=== PATIENT | female | born 1990 | race Caucasian/White ===

== ENCOUNTER 2017-08-28 19:28 | Emergency (ER) | payer OTHER ==
--- NOTE | 2017-08-28 19:56 | ER Document Report ---
ED Medical Screen (RME) - General Chief Complaint: Chest Pain Stated Complaint: CHEST PAIN,DIFFICULTY BREATHING Time Seen by Provider: 08/28/17 19:50 Notes: Patient presents with a sudden onset of substernal sharp chest pain and shortness of breath. No cough or congestion. No previous history of DVT or PE. She does have a history of PSVT. However she states this feels different. She states she quit smoking 1 week ago. No history of hormone usage. No recent long plane rides or car trips. No recent surgeries. TRAVEL OUTSIDE OF THE [place] IN LAST 30 DAYS: No - Related Data Allergies/Adverse Reactions: Adhesive Bandage * [Adhesive Bandage] Allergy (Severe, Verified 06/29/15 11:27) Skin blisters, cracks, bleeds Soaps Allergy (Severe, Uncoded 06/29/15 11:27) Skin blisters, cracks, bleeds Past Medical History - Social History Chew tobacco use (# tins/day): No Frequency of alcohol use: None Drug Abuse: None - Past Medical History Cardiac Medical History: Denies: Hx Coronary Artery Disease, Hx Heart Attack, Hx Hypertension Pulmonary Medical History: Reports: Hx Pneumonia - As a child Denies: Hx Asthma, Hx Bronchitis, Hx COPD Neurological Medical History: Reports: Hx Migraine. Denies: Hx Cerebrovascular Accident, Hx Seizures Renal/ Medical History: Denies: Hx Peritoneal Dialysis Musculoskeltal Medical History: Denies Hx Arthritis, Reports Hx Musculoskeletal Trauma - ankles and wrist and right elbow Skin Medical History: Reports Hx Eczema Psychiatric Medical History: Reports: Hx Anxiety, Hx Bipolar Disorder Past Surgical History: Reports: Hx Adenoidectomy, Hx Tonsillectomy - and addenoids - Immunizations Immunizations up to date: Yes Hx Diphtheria, Pertussis, Tetanus Vaccination: Yes
[2017-08-28 20:40] LABS: ABSOLUTE BASOPHILS # (AUTO) 0.1 10^3/uL (0.0-0.2); ABSOLUTE EOSINOPHILS # (AUTO) 0.4 10^3/uL (0.0-0.6); ABSOLUTE LYMPHOCYTES (AUTO) 3.1 10^3/uL (0.5-4.7); ABSOLUTE MONOCYTES (AUTO) 0.4 10^3/uL (0.1-1.4); ABSOLUTE NEUT (AUTO) 6.2 10^3/uL (1.7-8.2); BASOPHILS % (AUTO) 0.6 % (0-2); HEMATOCRIT 41.6 % (36.0-47.0); HEMOGLOBIN 14.1 g/dL (12.0-15.5); HGB HCT DIFFERENCE 0.7; LYMPHOCYTES % (AUTO) 30.4 % (13-45); MEAN CORPUSCULAR HEMOGLOBIN 31.3 pg (27.0-33.4); MEAN CORPUSCULAR VOLUME 92 fl (80-97); MONOCYTES % (AUTO) 3.8 % (3-13); RED BLOOD COUNT 4.52 10^6/uL (3.72-5.28); RED CELL DISTRIBUTION WIDTH 12.8 % (11.5-14.0); SEGMENTED NEUTROPHILS % (AUTO) 61.2 % (42-78); WHITE BLOOD COUNT 10.1 10^3/uL (4.0-10.5)
--- NOTE | 2017-08-28 20:47 | RADIOLOGY REPORT (SQ) ---
EXAM DESCRIPTION: CHEST PA/LAT COMPLETED DATE/TIME: 08/28/2017 8:32 pm REASON FOR STUDY: cp COMPARISON: None. EXAM PARAMETERS: NUMBER OF VIEWS: two views TECHNIQUE: Digital Frontal and Lateral radiographic views of the chest acquired. RADIATION DOSE: NA LIMITATIONS: none FINDINGS: LUNGS AND PLEURA: No opacities, masses or pneumothorax. No pleural effusion. MEDIASTINUM AND HILAR STRUCTURES: No masses or contour abnormalities. HEART AND VASCULAR STRUCTURES: Heart normal size. No evidence for failure. BONES: No acute findings. HARDWARE: None in the chest. OTHER: No other significant finding. IMPRESSION: NO SIGNIFICANT RADIOGRAPHIC FINDING IN THE CHEST. TECHNICAL DOCUMENTATION: JOB ID: [id number] [employer]- All Rights Reserved
[2017-08-28 21:00] LABS: ALANINE AMINOTRANSFERASE 36 U/L (9-52); ALBUMIN 4.6 g/dL (3.5-5.0); ALKALINE PHOSPHATASE 80 U/L (38-126); ANION GAP 12 (5-19); ASPARTATE AMINO TRANSFERASE 31 U/L (14-36); BILIRUBIN,DIRECT 0.3 mg/dL (0.0-0.4); BILIRUBIN,TOTAL 0.4 mg/dL (0.2-1.3); BLOOD UREA NITROGEN 13 mg/dL (7-20); CALCIUM 9.6 mg/dL (8.4-10.2); CARBON DIOXIDE 28 mmol/L (22-30); CHLORIDE 104 mmol/L (98-107); CREATININE RESULT 0.72 mg/dL (0.52-1.25); GLUCOSE 79 mg/dL (75-110); POTASSIUM 4.1 mmol/L (3.6-5.0); SODIUM 143.5 mmol/L (137-145); TOTAL PROTEIN 6.6 g/dL (6.3-8.2)
[2017-08-28] MEDS ORDERED: LORAZEPAM 1 MG TABLET PO ONE (21:14)
[2017-08-28] MEDS ORDERED: IBUPROFEN 600 MG TABLET PO ONE (21:16)
[2017-08-28 21:17] VITALS: BP 129/83
[2017-08-28 21:29] LABS: APPEARANCE,URINE SLIGHTLY-CLOUDY; BILIRUBIN,URINE NEGATIVE (NEGATIVE); GLUCOSE, URINE NEGATIVE (NEGATIVE); KETONES,URINE NEGATIVE (NEGATIVE); LEUKOCYTE ESTERASE,URINE NEGATIVE (NEGATIVE); NITRITE,URINE NEGATIVE (NEGATIVE); PROTEIN,URINE 30 mg/dL (NEGATIVE); URINE SPECIFIC GRAVITY 1.026
[2017-08-28] MEDS ORDERED: LIDOCAINE 2% VISCOUS SOLN 20 ML UDCUP PO ONE (21:37)
[2017-08-28] MEDS ORDERED: METOCLOPRAMIDE HCL ORAL SOLN 10 MG/10 ML UDCUP PO ONE (21:37)
[2017-08-28] MEDS ORDERED: MAG HYDROX/AL HYDROX/SIMETH SUSP 30 ML UDCUP PO ONE (21:37)
--- NOTE | 2017-08-28 21:37 | ER Document Report ---
ED General - General Chief Complaint: Chest Pain Stated Complaint: CHEST PAIN,DIFFICULTY BREATHING Time Seen by Provider: 08/28/17 19:50 Notes: Patient is a 27-year-old female with past medical history of supraventricular tachycardia, no additional medical history, no cardiac history, no prior history of DVT or pulmonary embolus, no use of estrogen, who presents with acute onset of left-sided chest discomfort. Patient states that this started abruptly at approximately 1700 when she was looking including with 1 of her children. Describes it as a sharp, cramping pain to the left side of the chest. Nothing improves or worsens that pain. She has intermittent associated shortness of breath. She denies any history of similar symptoms in the past. Denies any trauma of the chest. No unilateral leg swelling, hemoptysis, headache or neck pain. TRAVEL OUTSIDE OF THE [place] IN LAST 30 DAYS: No - Related Data Allergies/Adverse Reactions: Adhesive Bandage * [Adhesive Bandage] Allergy (Severe, Verified 08/28/17 21:09) Skin blisters, cracks, bleeds Soaps Allergy (Severe, Uncoded 08/28/17 21:09) Skin blisters, cracks, bleeds Past Medical History - General Information source: Patient - Social History Smoking Status: Former Smoker Chew tobacco use (# tins/day): No Frequency of alcohol use: None Drug Abuse: None Lives with: Spouse/Significant other Family History: Reviewed & Not Pertinent, Arthritis, CAD, CVA, DM, Hyperlipidemia, Hypertension, Malignancy Patient has suicidal ideation: No Patient has homicidal ideation: No - Past Medical History Cardiac Medical History: Denies: Hx Coronary Artery Disease, Hx Heart Attack, Hx Hypertension Pulmonary Medical History: Reports: Hx Pneumonia - As a child Denies: Hx Asthma, Hx Bronchitis, Hx COPD Neurological Medical History: Reports: Hx Migraine. Denies: Hx Cerebrovascular Accident, Hx Seizures Renal/ Medical History: Denies: Hx Peritoneal Dialysis Musculoskeltal Medical History: Denies Hx Arthritis, Reports Hx Musculoskeletal Trauma - ankles and wrist and right elbow Skin Medical History: Reports Hx Eczema Psychiatric Medical History: Reports: Hx Anxiety, Hx Bipolar Disorder Past Surgical History: Reports: Hx Adenoidectomy, Hx Tonsillectomy - and addenoids, Hx Tubal Ligation - Immunizations Immunizations up to date: Yes Hx Diphtheria, Pertussis, Tetanus Vaccination: Yes Review of Systems - Review of Systems Notes: Constitutional: Negative for fever. HENT: Negative for sore throat. Eyes: Negative for visual changes. Cardiovascular: Positive for chest pain. Respiratory: Positive for shortness of breath. Gastrointestinal: Negative for abdominal pain, vomiting or diarrhea. Genitourinary: Negative for dysuria. Musculoskeletal: Negative for back pain. Skin: Negative for rash. Neurological: Negative for headaches, weakness or numbness. 10 point ROS negative except as marked above and in HPI. Physical Exam - Vital signs Vitals: Temp Pulse Resp BP Pulse Ox 99.2 F 107 H 18 120/84 100 08/28/17 19:48 08/28/17 19:48 08/28/17 19:48 08/28/17 19:48 08/28/17 19:48 Interpretation: Tachycardic Notes: PHYSICAL EXAMINATION: GENERAL: Well-appearing, well-nourished and in no acute distress. HEAD: Atraumatic, normocephalic. EYES: Pupils equal round and reactive to light, extraocular movements intact, sclera anicteric, conjunctiva are normal. ENT: nares patent, oropharynx clear without exudates. Moist mucous membranes. NECK: Normal range of motion, supple without lymphadenopathy LUNGS: Breath sounds clear to auscultation bilaterally and equal. No wheezes rales or rhonchi. HEART: Regular rate and rhythm without murmurs ABDOMEN: Soft, nontender, normoactive bowel sounds. No guarding, no rebound. No masses appreciated. EXTREMITIES: Normal range of motion, no pitting or edema. No cyanosis. NEUROLOGICAL: No focal neurological deficits. Moves all extremities spontaneously and on command. PSYCH: Normal mood, normal affect. SKIN: Warm, Dry, normal turgor, no rashes or lesions noted. Course - Re-evaluation Re-evalutation: 08/28/17 21:34 Presentation of chest pain in an otherwise well appearing patient. Low clinical suspicion for ACS given clinical history, exam, EKG without ST elevations or depressions, and negative initial troponin. HEART score less than or equal to 3. PE was the most concerning possible diagnosis given initial tachycardia and abrupt onset of pain. D-dimer was obtained and is normal. CXR without evidence of pneumothorax or pneumonia. No widened mediastinum. Aortic dissection also seems unlikely given history, symmetric pulses, CXR, and vitals. Suspect likely esophageal or musculoskeletal origin. At this time will discharge with return precautions and follow-up recommendations. Verbal discharge instructions given a the bedside and opportunity for questions given. Medication warnings reviewed. Patient is in agreement with this plan and has verbalized understanding of return precautions and the need for primary care follow-up in the next 24-72 hours. - Vital Signs Vital signs: Temp Pulse Resp BP Pulse Ox 98.2 F 107 H 15 129/83 H 99 08/28/17 21:38 08/28/17 19:48 08/28/17 21:01 08/28/17 21:01 08/28/17 21:01 - Laboratory Result Diagrams: 08/28/17 20:05 08/28/17 20:05 Laboratory results interpreted by me: 08/28/17 20:05 Urine Protein 30 H Urine Urobilinogen 2.0 H - Diagnostic Test Radiology reviewed: Image reviewed, Reports reviewed Radiology results interpreted by me: 08/29/17 03:19 Chest x-ray: No acute infiltrate or pneumothorax - EKG Interpretation by Me Additional EKG results interpreted by me: 08/29/17 03:19 Sinus tachycardia. Rate 123. No ST elevations or depressions. QTC is 429. Discharge - Discharge Clinical Impression: Chest wall pain Condition: Good Disposition: HOME, SELF-CARE Additional Instructions: You were seen today for chest pain. The exact cause of your pain is unclear. However, based on your cardiac enzyme testing, chest x-ray, and EKG it does not appear that it is from an immediately life-threatening cause at this time. Please return to emergency department immediately if you have worsening of your chest pain, shortness of breath, vomiting, become unable to exert yourself due to pain or difficulty breathing, you pass out, or have any pain that radiates into your arms, jaw, or back. Please also return if you have any additional symptoms that are concerning to you.
--- NOTE | 2017-08-29 09:15 | EKG REPORT ---
SEVERITY:- BORDERLINE ECG - SINUS TACHYCARDIA BORDERLINE T WAVE ABNORMALITIES : Confirmed by: Radha Garsia 29-Aug-2017 09:15:22
== END 2017-08-28 21:45 | disposition home or self-care (01) ==
LOC: ER 19:28
DX: R07.89 Other chest pain (principal); R06.02 Shortness of breath; I47.1 Supraventricular tachycardia; Z87.891 Personal history of nicotine dependence
CPT/HCPCS: 36415; 71020; 80053; 81001; 81025; 84484; 85025; 85379; 93010; 99285

== ENCOUNTER 2017-10-18 15:55 | Emergency (ER) | payer OTHER ==
[2017-10-18] MEDS ORDERED: HYDROCODONE/ACETAMINOPHEN 5-325 MG TABLET PO ONE (17:05)
--- NOTE | 2017-10-18 17:07 | ER Document Report ---
ED General - General Chief Complaint: Shoulder Injury Stated Complaint: FALL;LEFT ARM INJURY Time Seen by Provider: 10/18/17 17:01 Mode of Arrival: Ambulatory Information source: Patient Notes: 27-year-old female who slipped outside and landed on her shoulder collarbone. Patient is pain with range of motion. Patient has good strength and sensation in her hand TRAVEL OUTSIDE OF THE [place] IN LAST 30 DAYS: No - HPI Onset: Just prior to arrival Onset/Duration: Sudden Quality of pain: Achy Severity: Moderate Pain Level: 2 Associated symptoms: Body/muscle aches Exacerbated by: Movement Relieved by: Denies Similar symptoms previously: No Recently seen / treated by doctor: No - Related Data Allergies/Adverse Reactions: Adhesive Bandage * [Adhesive Bandage] Allergy (Severe, Verified 10/18/17 15:59) Skin blisters, cracks, bleeds Soaps Allergy (Severe, Uncoded 10/18/17 15:59) Skin blisters, cracks, bleeds Past Medical History - Social History Smoking Status: Current Every Day Smoker Cigarette use (# per day): Yes Chew tobacco use (# tins/day): No Smoking Education Provided: No Frequency of alcohol use: None Drug Abuse: None Family History: Reviewed & Not Pertinent, Arthritis, CAD, CVA, DM, Hyperlipidemia, Hypertension, Malignancy Patient has suicidal ideation: No Patient has homicidal ideation: No - Past Medical History Cardiac Medical History: Denies: Hx Coronary Artery Disease, Hx Heart Attack, Hx Hypertension Pulmonary Medical History: Reports: Hx Pneumonia - As a child Denies: Hx Asthma, Hx Bronchitis, Hx COPD Neurological Medical History: Reports: Hx Migraine. Denies: Hx Cerebrovascular Accident, Hx Seizures Renal/ Medical History: Denies: Hx Peritoneal Dialysis Musculoskeltal Medical History: Denies Hx Arthritis, Reports Hx Musculoskeletal Trauma - ankles and wrist and right elbow Skin Medical History: Reports Hx Eczema Psychiatric Medical History: Reports: Hx Anxiety, Hx Bipolar Disorder Past Surgical History: Reports: Hx Adenoidectomy, Hx Tonsillectomy - and addenoids, Hx Tubal Ligation - Immunizations Immunizations up to date: Yes Hx Diphtheria, Pertussis, Tetanus Vaccination: Yes Review of Systems - Review of Systems Notes: REVIEW OF SYSTEMS: CONSTITUTIONAL : Denies fever, chills, or sweats. Denies recent illness. EENT: Denies eye, ear, throat, or mouth pain or symptoms. Denies nasal or sinus congestion or discharge. Denies throat, tongue, or mouth swelling or difficulty swallowing. CARDIOVASCULAR: Denies chest pain. Denies palpitations or racing or irregular heart beat. Denies ankle edema. RESPIRATORY: Denies cough, cold, or chest congestion. Denies shortness of breath, difficulty breathing, or wheezing. GASTROINTESTINAL: Denies abdominal pain or distention. Denies nausea, vomiting , or diarrhea. Denies blood in vomitus, stools, or per rectum. Denies black, tarry stools. Denies constipation. GENITOURINARY: Denies difficulty urinating, painful urination, burning, frequency, blood in urine, or discharge. FEMALE GENITOURINARY: Denies vaginal bleeding, heavy or abnormal periods, irregular periods. Denies vaginal discharge or odor. MUSCULOSKELETAL: Admits left shoulder pain SKIN: Denies rash, lesions or sores. HEMATOLOGIC : Denies easy bruising or bleeding. LYMPHATIC: Denies swollen, enlarged glands. NEUROLOGICAL: Denies confusion or altered mental status. Denies passing out or loss of consciousness. Denies dizziness or lightheadedness. Denies headache. Denies weakness or paralysis or loss of use of either side. Denies problems with gait or speech. Denies sensory loss, numbness, or tingling. Denies seizures. PSYCHIATRIC: Denies anxiety or stress. Denies depression, suicidal ideation, or homicidal ideation. ALL OTHER SYSTEMS REVIEWED AND NEGATIVE. PHYSICAL EXAMINATION: GENERAL: Well-appearing, well-nourished and in no acute distress. HEAD: Atraumatic, normocephalic. EYES: Pupils equal round and reactive to light, extraocular movements intact, conjunctiva are normal. ENT: Nares patent, oropharynx clear without exudates. Moist mucous membranes. NECK: Normal range of motion, supple without lymphadenopathy LUNGS: Breath sounds clear to auscultation bilaterally and equal. No wheezes rales or rhonchi. HEART: Regular rate and rhythm without murmurs ABDOMEN: Soft, nontender, nondistended abdomen. No guarding, no rebound. No masses appreciated. Female : deferred Musculoskeletal: Limited range of motion of the left shoulder secondary to pain patient has good strength in her left hand no tenting of the skin NEUROLOGICAL: Cranial nerves grossly intact. Normal speech, normal gait. Normal sensory, motor exams PSYCH: Normal mood, normal affect. SKIN: Warm, Dry, normal turgor, no rashes or lesions noted. Dictation was performed using [employer] voice recognition software Physical Exam - Vital signs Vitals: Temp Pulse Resp BP Pulse Ox 98.8 F 106 H 18 115/78 100 10/18/17 16:04 10/18/17 16:04 10/18/17 16:04 10/18/17 16:04 10/18/17 16:04 Course - Re-evaluation Re-evalutation: 10/18/17 17:07 Patient has been offered pain medication. 10/18/17 21:17 X-ray noted no fracture, given the patient's having pain with movement of the shoulder is always a concern for a rotator cuff injury, patient will be placed in a sling and will be given follow-up with orthopedics but is otherwise well- appearing in no distress. After performing a Medical Screening Examination, I estimate there is LOW risk for INTRACRANIAL HEMORRHAGE, UNSTABLE SPINE FRACTURE, CENTRAL CORD SYNDROME, CAUDA EQUINA, THORACIC AORTIC DISSECTION, PNEUMOTHORAX, PERFORATED BOWEL, RUPTURED ABDOMINAL AORTIC ANEURYSM, ACUTE TENDON RUPTURE, COMPARTMENT SYNDROME, or OPEN FRACTURE, thus I consider the discharge disposition reasonable. Also, there is no evidence or peritonitis, sepsis, or toxicity. I have reevaluated this patient multiple times and no significant life threatening changes are noted. The patient and I have discussed the diagnosis and risks, and we agree with discharging home to follow-up with their primary doctor with the understanding that symptoms and presentations can change. We also discussed returning to the Emergency Department immediately if new or worsening symptoms occur. We have discussed the symptoms which are most concerning (e.g., bloody stool, fever, changing or worsening pain, vomiting) that necessitate immediate return. - Vital Signs Vital signs: Temp Pulse Resp BP Pulse Ox 98.6 F 99 18 121/80 97 10/18/17 18:00 10/18/17 18:00 10/18/17 18:00 10/18/17 18:00 10/18/17 18:00 - Diagnostic Test Radiology reviewed: Image reviewed, Reports reviewed - No acute fracture Procedures - Immobilization Left Shoulder Time completed: 20:00 Pre-Proc Neuro Vasc Exam: Normal Immobilizer type: Sling Performed by: PCT Post-Proc Neuro Vasc Exam: Normal Alignment checked and good: Yes Discharge - Discharge Clinical Impression: Shoulder injury Qualifiers: Encounter type: initial encounter Laterality: left Qualified Code(s): S49.92XA - Unspecified injury of left shoulder and upper arm, initial encounter Condition: Stable Disposition: HOME, SELF-CARE Instructions: Sling as Treatment ([facility]) Prescriptions: Hydrocodone/Acetaminophen [[place] 5-325 mg Tablet] 1 tab PO Q6 #10 tablet Referrals: WOODROW GOMEZ MD [ACTIVE STAFF] - Follow up in 3-5 days
--- NOTE | 2017-10-18 17:35 | RADIOLOGY REPORT (SQ) ---
EXAM DESCRIPTION: SHOULDER LEFT 2 OR MORE VIEWS COMPLETED DATE/TIME: 10/18/2017 5:24 pm REASON FOR STUDY: left shoulder collar bone injury COMPARISON: None. NUMBER OF VIEWS: Three views. TECHNIQUE: Internal rotation, external rotation, and Y view images acquired of the left shoulder. LIMITATIONS: None. FINDINGS: MINERALIZATION: Normal. BONES: No acute fracture or dislocation. No worrisome bone lesions. JOINTS: No dislocation. VISUALIZED LUNGS AND RIBS: No pneumothorax. No rib fracture. SOFT TISSUES: No radiopaque foreign body. OTHER: No other significant finding. IMPRESSION: NEGATIVE STUDY OF THE LEFT SHOULDER. NO RADIOGRAPHIC EVIDENCE OF ACUTE INJURY. TECHNICAL DOCUMENTATION: JOB ID: [id number] [employer]- All Rights Reserved
--- NOTE | 2017-10-18 17:36 | RADIOLOGY REPORT (SQ) ---
EXAM DESCRIPTION: CHEST PA/LAT COMPLETED DATE/TIME: 10/18/2017 5:24 pm REASON FOR STUDY: left shoulder collar bone injury COMPARISON: 08/28/2017 EXAM PARAMETERS: NUMBER OF VIEWS: two views TECHNIQUE: Digital Frontal and Lateral radiographic views of the chest acquired. RADIATION DOSE: NA LIMITATIONS: none FINDINGS: LUNGS AND PLEURA: No opacities, masses or pneumothorax. No pleural effusion. MEDIASTINUM AND HILAR STRUCTURES: No masses or contour abnormalities. HEART AND VASCULAR STRUCTURES: Heart normal size. No evidence for failure. BONES: No acute findings. HARDWARE: None in the chest. OTHER: No other significant finding. IMPRESSION: NO SIGNIFICANT RADIOGRAPHIC FINDING IN THE CHEST. TECHNICAL DOCUMENTATION: JOB ID: [id number] [employer]- All Rights Reserved
[2017-10-18 18:01] VITALS: BP 121/80
== END 2017-10-18 18:03 | disposition home or self-care (01) ==
LOC: ER 15:55
DX: S49.92XA Unspecified injury of left shoulder and upper arm, initial encounter (principal); M79.1 Myalgia; W01.0XXA Fall on same level from slipping, tripping and stumbling without subsequent striking against object, initial encounter; F17.210 Nicotine dependence, cigarettes, uncomplicated; Z98.51 Tubal ligation status
CPT/HCPCS: 71046; 99283

== ENCOUNTER 2019-10-09 19:40 | Emergency (ER) | payer OTHER ==
[2019-10-09] MEDS ORDERED: BENZONATATE 100 MG CAPSULE PO ONE ×2 (19:54→22:15)
[2019-10-09] MEDS ORDERED: ONDANSETRON HCL INJ/PF 4 MG/2 ML SDV IV ONE ×2 (19:54→22:15)
[2019-10-09] MEDS ORDERED: NORMAL SALINE 1000 ML 1,000 ML IV ONE ×2 (19:55→23:47)
--- NOTE | 2019-10-09 19:57 | ER Document Report ---
ED Medical Screen (RME) - General Chief Complaint: Flu Symptoms Stated Complaint: SHORTNESS OF BREATH,CHEST PAIN Time Seen by Provider: 10/09/19 19:50 Primary Care Provider: ADONIS QUEZADA FNP [Primary Care Provider] - Follow up as needed TRAVEL OUTSIDE OF THE [place] IN LAST 30 DAYS: No - HPI Notes: 10/09/19 19:56 Patient is a 29-year-old female with a history of sinus tachycardia who presents complaining of nasal congestion/discharge, fevers, harsh dry cough, feeling short of breath, and intermittent nausea and vomiting for the past couple days. Patient states that she cannot speak loudly or take a deep breath without having a significant coughing fit. I have treated and performed a rapid initial assessment of this patient. A comprehensive ED assessment and evaluation of the patient, analysis of test results and completion of medical decision making process will be conducted by additional ED providers. PHYSICAL EXAMINATION: GENERAL: Well-appearing, well-nourished and in no acute distress. A&Ox4. Answers questions appropriately. Lungs: CTAB. No retractions Heart: RRR - Related Data Allergies/Adverse Reactions: Adhesive Bandage * [Adhesive Bandage] Allergy (Severe, Verified 10/09/19 19:55) Skin blisters, cracks, bleeds Soaps Allergy (Severe, Uncoded 10/09/19 19:55) Skin blisters, cracks, bleeds Past Medical History - Social History Chew tobacco use (# tins/day): No Drug Abuse: None - Past Medical History Cardiac Medical History: Denies: Hx Coronary Artery Disease, Hx Heart Attack, Hx Hypertension Pulmonary Medical History: Reports: Hx Pneumonia - As a child Denies: Hx Asthma, Hx Bronchitis, Hx COPD Neurological Medical History: Reports: Hx Migraine. Denies: Hx Cerebrovascular Accident, Hx Seizures Renal/ Medical History: Denies: Hx Peritoneal Dialysis Musculoskeltal Medical History: Denies Hx Arthritis, Reports Hx Musculoskeletal Trauma - ankles and wrist and right elbow Skin Medical History: Reports Hx Eczema Psychiatric Medical History: Reports: Hx Anxiety, Hx Bipolar Disorder Past Surgical History: Reports: Hx Adenoidectomy, Hx Tonsillectomy - and addenoids, Hx Tubal Ligation - Immunizations Immunizations up to date: Yes Hx Diphtheria, Pertussis, Tetanus Vaccination: Yes Physical Exam - Vital signs Vitals: Temp Pulse Resp BP Pulse Ox 98.1 F 82 20 111/74 97 10/09/19 19:50 10/09/19 19:50 10/09/19 19:50 10/09/19 19:50 10/09/19 19:50 Course - Vital Signs Vital signs: Temp Pulse Resp BP Pulse Ox 98.1 F 82 20 111/74 97 10/09/19 19:50 10/09/19 19:50 10/09/19 19:50 10/09/19 19:50 10/09/19 19:50 Doctor's Discharge - Discharge Referrals: ADONIS QUEZADA FNP [Primary Care Provider] - Follow up as needed
--- NOTE | 2019-10-09 20:47 | RADIOLOGY REPORT (SQ) ---
EXAM DESCRIPTION: XR CHEST 2 VIEWS COMPLETED DATE/TME: 10/09/2019 19:55 CLINICAL HISTORY: 29 years, Female, cough Comparison: October 18, 2017 FINDINGS: No focal lung consolidation. No pleural effusion. No pneumothorax. Cardiac and mediastinal silhouette is unremarkable. No acute osseous abnormality. Soft tissues are unremarkable. IMPRESSION: No acute findings. No focal lung consolidation.
[2019-10-09 20:54] LABS: ABSOLUTE LYMPHOCYTES (AUTO) 1.6 10^3/uL (0.5-4.7); ABSOLUTE MONOCYTES (AUTO) 0.4 10^3/uL (0.1-1.4); ABSOLUTE NEUT (AUTO) 1.6 10^3/uL (1.7-8.2); BASOPHILS % (AUTO) 0.6 % (0-2); EOSINOPHILS % (AUTO) 0.7 % (0-6); HEMATOCRIT 41.2 % (36.0-47.0); HEMOGLOBIN 14.4 g/dL (12.0-15.5); LYMPHOCYTES % (AUTO) 44.1 % (13-45); MEAN CORPUSCULAR HEMOGLOBIN 33.4 pg (27.0-33.4); MEAN CORPUSCULAR HGB CONC 34.9 g/dL (32.0-36.0); MEAN CORPUSCULAR VOLUME 96 fl (80-97); MONOCYTES % (AUTO) 11.2 % (3-13); PLATELET COUNT 210 10^3/uL (150-450); RED CELL DISTRIBUTION WIDTH 12.9 % (11.5-14.0); SEGMENTED NEUTROPHILS % (AUTO) 43.4 % (42-78); TOTAL CELLS COUNTED % (AUTO) 100 %; WHITE BLOOD COUNT 3.7 10^3/uL (4.0-10.5)
[2019-10-09 21:05] LABS: APPEARANCE,URINE SLIGHTLY-CLOUDY; BILIRUBIN,URINE NEGATIVE (NEGATIVE); COLOR,URINE AMBER; GLUCOSE, URINE NEGATIVE (NEGATIVE); KETONES,URINE 80 mg/dL (NEGATIVE); LEUKOCYTE ESTERASE,URINE NEGATIVE (NEGATIVE); NITRITE,URINE NEGATIVE (NEGATIVE); PROTEIN,URINE 100 mg/dL (NEGATIVE); URINE SPECIFIC GRAVITY 1.027
[2019-10-09 21:08] LABS: ALBUMIN 4.3 g/dL (3.5-5.0); ALKALINE PHOSPHATASE 60 U/L (38-126); ANION GAP 13 (5-19); ASPARTATE AMINO TRANSFERASE 25 U/L (14-36); BILIRUBIN,DIRECT 0.3 mg/dL (0.0-0.4); BILIRUBIN,TOTAL 0.5 mg/dL (0.2-1.3); BLOOD UREA NITROGEN 15 mg/dL (7-20); CALCIUM 9.5 mg/dL (8.4-10.2); CARBON DIOXIDE 19 mmol/L (22-30); CHLORIDE 111 mmol/L (98-107); GLUCOSE 71 mg/dL (75-110); POTASSIUM 4.2 mmol/L (3.6-5.0)
[2019-10-09 21:10] LABS: A TYPE INFLUENZA AG NEGATIVE (NEGATIVE); B INFLUENZA AG NEGATIVE (NEGATIVE)
[2019-10-09] MEDS ORDERED: IPRATROPIUM/ALBUTEROL 0.5-2.5 MG/3 ML AMPUL NEB ONE (23:46)
[2019-10-09] MEDS ORDERED: KETOROLAC TROMETHAMINE INJ/PF 30 MG/1 ML SDV IV ONE (23:46)
[2019-10-09] MEDS ORDERED: METHYLPREDNISOLONE INJ 125 MG/2 ML SDV IV ONE (23:48)
--- NOTE | 2019-10-10 | ER Document Report ---
ED General - General Chief Complaint: Flu Symptoms Stated Complaint: SHORTNESS OF BREATH,CHEST PAIN Time Seen by Provider: 10/09/19 19:50 Primary Care Provider: ADONIS QUEZADA FNP [Primary Care Provider] - Follow up as needed TRAVEL OUTSIDE OF THE [place] IN LAST 30 DAYS: No - HPI Notes: 29-year-old female presenting with 3-day history of flulike symptoms including headache, myalgias, intermittent fever sore throat and nonproductive cough. States that she did take a flu shot earlier in the year. She is a non-smoker. Today during paroxysmal episodes of coughing she is vomited several times. Denies diarrhea. Pertinent prior history: Supraventricular tachycardia, migraine headaches, chronic pain syndrome and bipolar disorder. Patient reports asthma in childhood. She denies any breathing problems as an adult. Denies use of alcohol tobacco or drugs. - Related Data Allergies/Adverse Reactions: Adhesive Bandage * [Adhesive Bandage] Allergy (Severe, Verified 10/09/19 19:55) Skin blisters, cracks, bleeds Soaps Allergy (Severe, Uncoded 10/09/19 19:55) Skin blisters, cracks, bleeds Past Medical History - General Information source: Patient, Relative - Social History Smoking Status: Former Smoker Chew tobacco use (# tins/day): No Drug Abuse: None Family History: Reviewed & Not Pertinent, Arthritis, CAD, CVA, DM, Hyperlipidemia, Hypertension, Malignancy Patient has suicidal ideation: No Patient has homicidal ideation: No - Past Medical History Cardiac Medical History: Denies: Hx Coronary Artery Disease, Hx Heart Attack, Hx Hypertension Pulmonary Medical History: Reports: Hx Pneumonia - As a child Denies: Hx Asthma, Hx Bronchitis, Hx COPD Neurological Medical History: Reports: Hx Migraine. Denies: Hx Cerebrovascular Accident, Hx Seizures Renal/ Medical History: Denies: Hx Peritoneal Dialysis Musculoskeletal Medical History: Denies Hx Arthritis, Reports Hx Musculoskeletal Trauma - ankles and wrist and right elbow Skin Medical History: Reports Hx Eczema Psychiatric Medical History: Reports: Hx Anxiety, Hx Bipolar Disorder Past Surgical History: Reports: Hx Adenoidectomy, Hx Tonsillectomy - and addenoids, Hx Tubal Ligation - Immunizations Immunizations up to date: Yes Hx Diphtheria, Pertussis, Tetanus Vaccination: Yes Review of Systems - Review of Systems Notes: Constitutional: As per HPI. HENT: As per HPI. Eyes: Negative for visual changes. Cardiovascular: Negative for chest pain. Respiratory: As per HPI. Gastrointestinal: As per HPI. Genitourinary: Negative for dysuria. Musculoskeletal: As per HPI. Skin: Negative for rash. Neurological: Negative for headaches, weakness or numbness. 10 point ROS negative except as marked above and in HPI. Physical Exam - Vital signs Vitals: Temp Pulse Resp BP Pulse Ox 98.1 F 82 20 111/74 97 10/09/19 19:50 10/09/19 19:50 10/09/19 19:50 10/09/19 19:50 10/09/19 19:50 - Notes Notes: GENERAL: Female patient of approximately stated age who appears weak and uncomfortable with dry cough present. SKIN: Flushed with good turgor no rashes. Moist and mildly diaphoretic. HEAD: Normocephalic atraumatic. EYES: PERRLA. EOMI. Conjunctivae injected bilaterally. EARS: CANALS AND TMS CLEAR. NOSE: Serous drainage bilaterally. MOUTH: Tacky mucosa. Good dentition. No stridor or edema. No drooling. THROAT: Injected without exudate. NECK: Supple. No masses or thyromegaly. No adenopathy. Carotids 2+ without bruits. No JVD. BACK: Symmetrical with diffuse musculoskeletal tenderness. CHEST: Respirations unlabored. Dry cough. Scattered wheezes bilaterally. HEART: Regular rhythm. No murmur gallop or rub. ABDOMEN: Soft nontender without masses, organomegaly or rebound. Bowel sounds normally active. No bruits. GENITALIA: Deferred. EXTREMITIES: No edema. No calf tenderness. Cap refill less than 1.5 seconds. Dorsalis pedis and posterior tibial pulses 3+ and symmetrical. NEUROLOGICAL: GCS 15. Alert and oriented x3. Normal gait. Fluent speech. Cranial nerves II through XII intact. Sensorimotor and cerebellar normal. Normal tone. PSYCHIATRIC: Flat affect. Course - Re-evaluation Re-evalutation: 10/10/19 01:48 Influenza a and B screens are negative. Chest x-ray was negative for infiltrate. Wheezes were noted bilaterally. Patient received DuoNeb treatments and some IV Solu-Medrol. She was also given hydration with normal saline. Ree xamination at this time shows patient is feeling much better tolerating p.o. fluids and has had resolution of her wheezes. She wants to go home and I feel this to be appropriate. - Vital Signs Vital signs: Temp Pulse Resp BP Pulse Ox 98.1 F 71 18 107/69 100 10/10/19 00:51 10/10/19 00:51 10/10/19 00:51 10/10/19 00:51 10/10/19 00:51 - Laboratory Result Diagrams: 10/09/19 20:33 10/09/19 20:33 Laboratory results interpreted by me: 10/09/19 10/09/19 10/09/19 20:33 20:33 20:33 WBC 3.7 L Absolute Neuts (auto) 1.6 L Chloride 111 H Carbon Dioxide 19 L Glucose 71 L Urine Protein 100 H Urine Ketones 80 H Urine Blood MODERATE H Urine Urobilinogen 4.0 H Urine Ascorbic Acid 40 H Discharge - Discharge Clinical Impression: Acute viral syndrome, Dehydration Acute bronchitis Qualifiers: Bronchitis organism: unspecified organism Qualified Code(s): J20.9 - Acute bronchitis, unspecified Condition: Stable Disposition: HOME, SELF-CARE Instructions: Acetaminophen, Fever ([facility]), Viral Syndrome ([facility]) Additional Instructions: Bronchitis You have acute bronchitis. This disease is an infection or inflammation of the air passageways in your lungs. Symptoms usually include cough, low grade fever, shortness of breath, and wheezing. The cough usually persists for a couple of weeks. Most cases of bronchitis get better without antibiotics. We prescribe antibiotics when we believe bacteria are damaging your airways, or if there's high risk the bronchitis will worsen into pneumonia. Increase your fluid intake. A cool mist humidifier may make your lungs more comfortable. An expectorant (cough medicine that loosens phlegm) can help. If you smoke, STOP!!! Recovery from bronchitis can be somewhat slow, but you should see improvement within a day or two. Repeated episodes of bronchitis may result in lung damage -- for example, chronic bronchitis, recurrent pneumonias, or emphysema. Call the doctor if you develop increasing fever, shortness of breath, chest pain, bloody sputum, or otherwise worsen. If you have not improved at all after several days, contact the physician. Increase oral fluids. Tylenol as needed. Take prescribed medications. You are unable to work for the next 3 days and a work note has been provided. Return here as needed for new or worsening symptoms: Pain that is worsening or unimproved Uncontrolled vomiting High fever or shaking chills Overall worsening Prescriptions: Benzonatate [Tessalon Perles 100 mg Capsule] 100 mg PO Q8HP PRN #40 capsule PRN Reason: Prednisone [Deltasone 20 mg Tablet] 2 tab PO DAILY 5 Days #20 tablet Albuterol Sulfate [Proair HFA Inhalation Aerosol 8.5 gm MDI] 2 puff IH Q4H PRN #1 mdi PRN Reason: Forms: Return to Work Referrals: ADONIS QUEZADA FNP [Primary Care Provider] - Follow up as needed
[2019-10-10 02:25] VITALS: BP 98/61
--- NOTE | 2019-10-10 13:48 | EKG REPORT ---
SEVERITY:- BORDERLINE ECG - SINUS RHYTHM WITH SHIFTING ATRIAL PACEMAKER FOCUS. : Confirmed by: Emily Muir MD 10-Oct-2019 13:47:59
== END 2019-10-10 02:28 | disposition home or self-care (01) ==
LOC: ER 19:40
DX: J20.9 Acute bronchitis, unspecified (principal); B34.9 Viral infection, unspecified; E86.0 Dehydration; R51 Headache; M79.10 Myalgia, unspecified site; R50.9 Fever, unspecified; J02.9 Acute pharyngitis, unspecified; R05 Cough; R11.10 Vomiting, unspecified; Z91.048 Other nonmedicinal substance allergy status; Z87.01 Personal history of pneumonia (recurrent)
CPT/HCPCS: 93005; 96376; 94640; 99284; 96361; 96374; 96375; 36415; 83690; 85025; 81025; 80053; 81001; 87804; 71046; 93010; J2930; J1885; J2405; J7030; J7620

== ENCOUNTER 2020-08-03 10:04 | Emergency (ER) | payer OTHER ==
--- NOTE | 2020-08-03 10:28 | ER Document Report ---
ED Medical Screen (RME) - General Chief Complaint: Seizure Stated Complaint: RIB PAIN,TONGUE PAIN/POST SEIZURE Time Seen by Provider: 08/03/20 10:18 Primary Care Provider: ADONIS QUEZADA FNP [Primary Care Provider] - Follow up as needed Notes: Patient states that around 830 this morning she had a seizure while she was in the shower. Patient reports falling and injuring the left upper rib area. Patient complains of left-sided headache pain. Last seizure was a week ago. Patient complains of mouth pain from biting her tongue. I have greeted and performed a rapid initial assessment of this patient. A comprehensive ED assessment and evaluation of the patient, analysis of test results and completion of the medical decision making process will be conducted by additional ED providers. TRAVEL OUTSIDE OF THE [place] IN LAST 30 DAYS: No - Related Data Allergies/Adverse Reactions: Adhesive Bandage * [Adhesive Bandage] Allergy (Severe, Verified 10/09/19 19:55) Skin blisters, cracks, bleeds Soaps Allergy (Severe, Uncoded 10/09/19 19:55) Skin blisters, cracks, bleeds Past Medical History - Past Medical History Cardiac Medical History: Denies: Hx Coronary Artery Disease, Hx Heart Attack, Hx Hypertension Pulmonary Medical History: Reports: Hx Pneumonia - As a child Denies: Hx Asthma, Hx Bronchitis, Hx COPD Neurological Medical History: Reports: Hx Migraine. Denies: Hx Cerebrovascular Accident, Hx Seizures Renal/ Medical History: Denies: Hx Peritoneal Dialysis Musculoskeltal Medical History: Denies Hx Arthritis, Reports Hx Musculoskeletal Trauma - ankles and wrist and right elbow Skin Medical History: Reports Hx Eczema Psychiatric Medical History: Reports: Hx Anxiety, Hx Bipolar Disorder Past Surgical History: Reports: Hx Adenoidectomy, Hx Tonsillectomy - and addenoids, Hx Tubal Ligation - Immunizations Immunizations up to date: Yes Hx Diphtheria, Pertussis, Tetanus Vaccination: Yes Physical Exam - Vital signs Vitals: Temp Pulse Resp BP Pulse Ox 98.4 F 87 16 120/88 H 100 08/03/20 10:11 08/03/20 10:11 08/03/20 10:11 08/03/20 10:11 08/03/20 10:11 - General General appearance: Appears well, Alert - Respiratory Respiratory status: No respiratory distress Chest status: Tender - Left lower anterior rib tenderness, Pain with deep breathing Breath sounds: Normal. No: Rales, Rhonchi, Stridor, Wheezing Course - Vital Signs Vital signs: Temp Pulse Resp BP Pulse Ox 98.4 F 87 16 120/88 H 100 08/03/20 10:11 08/03/20 10:11 08/03/20 10:11 08/03/20 10:11 08/03/20 10:11 Doctor's Discharge - Discharge Referrals: ADONIS QUEZADA FNP [Primary Care Provider] - Follow up as needed
[2020-08-03 11:00] LABS: ABSOLUTE BASOPHILS # (AUTO) 0.1 10^3/uL (0.0-0.2); ABSOLUTE EOSINOPHILS # (AUTO) 0.3 10^3/uL (0.0-0.6); ABSOLUTE LYMPHOCYTES (AUTO) 1.9 10^3/uL (0.5-4.7); ABSOLUTE MONOCYTES (AUTO) 0.3 10^3/uL (0.1-1.4); ABSOLUTE NEUT (AUTO) 3.6 10^3/uL (1.7-8.2); BASOPHILS % (AUTO) 0.8 % (0-2); EOSINOPHILS % (AUTO) 4.7 % (0-6); HEMATOCRIT 39.9 % (36.0-47.0); HEMOGLOBIN 13.8 g/dL (12.0-15.5); LYMPHOCYTES % (AUTO) 31.5 % (13-45); MEAN CORPUSCULAR HEMOGLOBIN 34.1 pg (27.0-33.4); MEAN CORPUSCULAR HGB CONC 34.7 g/dL (32.0-36.0); MEAN CORPUSCULAR VOLUME 98 fl (80-97); MONOCYTES % (AUTO) 4.6 % (3-13); PLATELET COUNT 296 10^3/uL (150-450); RED BLOOD COUNT 4.06 10^6/uL (3.72-5.28); RED CELL DISTRIBUTION WIDTH 12.9 % (11.5-14.0); SEGMENTED NEUTROPHILS % (AUTO) 58.4 % (42-78); TOTAL CELLS COUNTED % (AUTO) 100 %; WHITE BLOOD COUNT 6.2 10^3/uL (4.0-10.5)
[2020-08-03 11:01] LABS: APPEARANCE,URINE CLEAR; BILIRUBIN,URINE NEGATIVE (NEGATIVE); COLOR,URINE STRAW; GLUCOSE, URINE NEGATIVE (NEGATIVE); KETONES,URINE NEGATIVE (NEGATIVE); LEUKOCYTE ESTERASE,URINE NEGATIVE (NEGATIVE); NITRITE,URINE NEGATIVE (NEGATIVE); PROTEIN,URINE NEGATIVE (NEGATIVE); URINE SPECIFIC GRAVITY 1.001; UROBILINOGEN,URINE NEGATIVE mg/dL (<2.0)
[2020-08-03 11:06] LABS: BLOOD UREA NITROGEN 8 mg/dL (7-20); CALCIUM 9.5 mg/dL (8.4-10.2); CARBON DIOXIDE 18 mmol/L (22-30); CHLORIDE 113 mmol/L (98-107); GLUCOSE 100 mg/dL (75-110); POTASSIUM 3.9 mmol/L (3.6-5.0)
[2020-08-03 11:07] LABS: ALBUMIN 4.5 g/dL (3.5-5.0); ALKALINE PHOSPHATASE 45 U/L (38-126); ANION GAP 10 (5-19); ASPARTATE AMINO TRANSFERASE 22 U/L (14-36); BILIRUBIN,DIRECT 0.2 mg/dL (0.0-0.4); BILIRUBIN,TOTAL 0.5 mg/dL (0.2-1.3); TOTAL PROTEIN 6.6 g/dL (6.3-8.2)
[2020-08-03 11:12] LABS: ALCOHOL < 10 mg/dL (NONE DETECTED)
[2020-08-03 11:28] LABS: URINE AMPHETAMINES SCREEN NEGATIVE; URINE BARBITURATES SCREEN NEGATIVE; URINE BENZODIAZEPINES SCREEN NEGATIVE; URINE COCAINE SCREEN NEGATIVE; URINE MARIJUANA (THC) SCREEN NEGATIVE; URINE METHADONE SCREEN NEGATIVE; URINE PHENCYCLIDINE SCREEN NEGATIVE
--- NOTE | 2020-08-03 11:57 | RADIOLOGY REPORT (SQ) ---
EXAM DESCRIPTION: CHEST 2 VIEWS IMAGES COMPLETED DATE/TIME: 08/03/2020 11:42 am REASON FOR STUDY: L rib pain, fall with seizure COMPARISON: PA and lateral views of the chest from 10/09/2019. EXAM PARAMETERS: NUMBER OF VIEWS: Two views. TECHNIQUE: PA and lateral views of the chest were obtained. RADIATION DOSE: NA LIMITATIONS: None. FINDINGS: LUNGS AND PLEURA: No consolidation, pleural effusion or pneumothorax. MEDIASTINUM AND HILAR STRUCTURES: No mediastinal or hilar contour abnormality. HEART AND VASCULAR STRUCTURES: The cardiac silhouette and pulmonary vasculature are within normal resendez its. BONES: No acute findings. HARDWARE: None in the chest. OTHER: No other finding. IMPRESSION: No acute cardiopulmonary process. TECHNICAL DOCUMENTATION: JOB ID: [id number] 2010 [employer]- All Rights Reserved Reading location - IP/workstation name: [email or web address]
--- NOTE | 2020-08-03 12:40 | ER Document Report ---
ED General - General Chief Complaint: Seizure Stated Complaint: RIB PAIN,TONGUE PAIN/POST SEIZURE Time Seen by Provider: 08/03/20 10:18 Primary Care Provider: ADONIS QUEZADA FNP [Primary Care Provider] - Follow up as needed Mode of Arrival: Ambulatory Information source: Patient Notes: This is a 30-year-old patient with history of seizures presenting to the emerg ency department chief complaint of left posterior rib pain after having a seizure today. She reports she takes Topamax for her seizures. She states that she can go several months with no seizures and then has breakthrough seizures. She denies any known trigger for her seizures. She reports she has been compliant with her medications. TRAVEL OUTSIDE OF THE [place] IN LAST 30 DAYS: No - Related Data Allergies/Adverse Reactions: Adhesive Bandage * [Adhesive Bandage] Allergy (Severe, Verified 08/03/20 12:46) Skin blisters, cracks, bleeds soap Allergy (Verified 08/03/20 12:46) Soaps Allergy (Severe, Uncoded 08/03/20 12:46) Skin blisters, cracks, bleeds Past Medical History - General Information source: Patient - Social History Smoking Status: Never Smoker Family History: Arthritis, CAD, CVA, DM, Hyperlipidemia, Hypertension, Malignancy Patient has homicidal ideation: No - Past Medical History Cardiac Medical History: Denies: Hx Coronary Artery Disease, Hx Heart Attack, Hx Hypertension Pulmonary Medical History: Reports: Hx Pneumonia - As a child Denies: Hx Asthma, Hx Bronchitis, Hx COPD Neurological Medical History: Reports: Hx Migraine, Hx Seizures. Denies: Hx C erebrovascular Accident Renal/ Medical History: Denies: Hx Peritoneal Dialysis Musculoskeletal Medical History: Denies Hx Arthritis, Reports Hx Musculoskeletal Trauma - ankles and wrist and right elbow Skin Medical History: Reports Hx Eczema Psychiatric Medical History: Reports: Hx Anxiety, Hx Bipolar Disorder Past Surgical History: Reports: Hx Adenoidectomy, Hx Tonsillectomy - and addenoids, Hx Tubal Ligation - Immunizations Immunizations up to date: Yes Hx Diphtheria, Pertussis, Tetanus Vaccination: Yes Review of Systems - Review of Systems Musculoskeletal: See HPI -: Yes All other systems reviewed and negative Physical Exam - Vital signs Vitals: Temp Pulse Resp BP Pulse Ox 98.4 F 87 16 120/88 H 100 08/03/20 10:11 08/03/20 10:11 08/03/20 10:11 08/03/20 10:11 08/03/20 10:11 - Notes Notes: PHYSICAL EXAMINATION: GENERAL: Well-appearing, well-nourished and in no acute distress. HEAD: Atraumatic, normocephalic. EYES: Pupils equal round and reactive to light, extraocular movements intact, conjunctiva are normal. ENT: Nares patent, oropharynx clear without exudates. Moist mucous membranes. NECK: Normal range of motion, supple without lymphadenopathy LUNGS: Breath sounds clear to auscultation bilaterally and equal. No wheezes rales or rhonchi. HEART: Regular rate and rhythm without murmurs ABDOMEN: Soft, nontender, nondistended abdomen. No guarding, no rebound. No masses appreciated. Female : deferred Musculoskeletal: Normal range of motion, no pitting or edema. No cyanosis. Tenderness on palpation to left posterior ribs, no crepitus or deformity on palpation. No ecchymosis. NEUROLOGICAL: Cranial nerves grossly intact. Normal speech, normal gait. Normal sensory, motor exams PSYCH: Normal mood, normal affect. SKIN: Warm, Dry, normal turgor, no rashes or lesions noted. Course - Re-evaluation Re-evalutation: 08/03/20 12:40 Patient declines offer of pain medication for her left posterior rib pain. Chest x-ray and dedicated left rib films were negative for any fracture. No pneumothorax. Patient appears well. Labs unremarkable. Patient will be discharged home at this time. Patient encouraged to follow-up with her provider who prescribes her seizure medications in case they need to be adjusted. Patient provided with incentive spirometer as a precaution as she states the pain is worse with deep breaths. - Vital Signs Vital signs: Temp Pulse Resp BP Pulse Ox 98.4 F 73 13 123/78 100 08/03/20 10:11 08/03/20 15:14 08/03/20 15:14 08/03/20 15:14 08/03/20 15:14 - Laboratory Result Diagrams: 08/03/20 10:35 08/03/20 10:35 Laboratory results interpreted by me: 08/03/20 08/03/20 10:35 10:35 MCV 98 H MCH 34.1 H Chloride 113 H Carbon Dioxide 18 L Discharge - Discharge Clinical Impression: Seizure, Rib pain on left side Condition: Stable Disposition: HOME, SELF-CARE Additional Instructions: Seizure, Known Epileptic You have had a seizure. Seizures may "break through" in an epileptic due to stress of infection or injury, a change in blood chemistry, or drug and alcohol use. Another common cause is failure to take medication as prescribed. Your doctor has evaluated your situation for the likely cause of this seizure. It is important that you follow his advice concerning any medication changes and follow-up care. Further testing of anti-seizure medication levels in your blood may be necessary. If you have a front end driver's license, it's important that you DO NOT DRIVE until given permission by your physician. This seizure must be reported to the front end driver's license bureau. Call the doctor or return if seizures recur, or if new or unusual symptoms arise -- such as severe headache, confusion, excessive sleepiness, local wea kness or numbness, neck stiffness, or fever. No evidence of rib fracture on dedicated rib images. Use incentive spirometer 4 times per day. Follow up with primary. Referrals: ADONIS QUEZADA FNP [Primary Care Provider] - Follow up as needed
--- NOTE | 2020-08-03 13:23 | RADIOLOGY REPORT (SQ) ---
EXAM DESCRIPTION: RIBS LEFT W/O PA CHEST IMAGES COMPLETED DATE/TIME: 08/03/2020 1:14 pm REASON FOR STUDY: fall/L anterior rib pain COMPARISON: None. NUMBER OF VIEWS: Two views. TECHNIQUE: Images acquired of the left ribs in the area of focal concern. LIMITATIONS: None. FINDINGS: RIBS: No acute displaced fracture. No worrisome bone lesions. LUNGS: Limited exam. No obvious pneumothorax. No pleural effusion. OTHER: No other significant finding. IMPRESSION: NO ACUTE DISPLACED RIB FRACTURE. COMMENT: SITE OF TRAUMA/COMPLAINT MARKED/STAMP COMPLETED: NO. TECHNICAL DOCUMENTATION: JOB ID: [id number] 2010 [employer]- All Rights Reserved Reading location - IP/workstation name: [email or web address]
[2020-08-03 15:15] VITALS: BP 123/78
--- NOTE | 2020-08-03 16:27 | EKG REPORT ---
SEVERITY:- OTHERWISE NORMAL ECG - SINUS ARRHYTHMIA, RATE 49-74 : Confirmed by: Swapnil John MD 03-Aug-2020 16:26:59
== END 2020-08-03 14:50 | disposition home or self-care (01) ==
LOC: ER 10:04
DX: R56.9 Unspecified convulsions (principal); R07.81 Pleurodynia; W18.2XXA Fall in (into) shower or empty bathtub, initial encounter; Z79.899 Other long term (current) drug therapy; Z88.8 Allergy status to other drugs, medicaments and biological substances; Z88.3 Allergy status to other anti-infective agents
CPT/HCPCS: 36415; 71046; 80053; 80307; 81001; 83735; 84703; 85025; 93005; 93010; 99285